=== PATIENT | male | born 1985 | race African-American/Black ===

== ENCOUNTER 2017-05-16 02:52 | Inpatient (IN) | payer OTHER, SELFPAY ==
[2017-05-16 03:20] LABS: Bilirubin Negative (Negative); Blood, Urine Large (Negative); Glucose, Urine (Dipstick) Negative (Negative); Ketone, Urine Negative (Negative); Nitrite Negative (Negative); Protein, Urine (Dipstick) 100 mg/dL (Neg-Trace); Urobilinogen 0.2 mg/dL (0.2-1.0)
[2017-05-16 03:22] LABS: Bacteria/HPF None Seen HPF (None Seen); Hyaline Casts/LPF 4-6 HYALINE CAST LPF (0-3 Hyaline); RBC/HPF 21-50 HPF (0-3); Squamous Epithelial 0-3 HPF (0-3); WBC/HPF 0-3 HPF (0-3)
[2017-05-16 03:23] LABS: Mean Platelet Volume 10.2 fL (7.4-10.4); Red Blood Cell (RBC) Count 6.51 mill/uL (4.70-6.10)
[2017-05-16 03:23] LABS: Oxyhemoglobin 89.4 % (94.0-97.0); Sodium 139 mmol/L (135-148)
[2017-05-16 03:27] LABS: PTT 28.1 SEC (22.9-36.1); Prothrombin Time 13.9 SEC (12.0-14.7)
[2017-05-16 03:30] LABS: Amphetamine Detected (NotDetected); Methadone Not Detected (NotDetected); Methamphetamine Detected (NotDetected)
[2017-05-16 03:31] LABS: Mechanical Tidal Volume 500 ml; Mode CMV; Modified Allen's Test POSITIVE; Vent YES
[2017-05-16 03:34] LABS: Band 2 % (5-11); Neutrophil 64 % (42-75); White Blood Cell (WBC) Count 17.9 thou/uL (4.8-10.8)
[2017-05-16 03:38] LABS: ALT (SGPT) 35 U/L (8-55); AST (SGOT) 58 U/L (5-34); Alkaline Phosphatase 98 U/L (40-150); Anion Gap 24 mmol/L (10-20); BUN (Urea Nitrogen) 15 mg/dL (8.9-20.6); Bilirubin, Total 0.3 mg/dL (0.2-1.2); Calc. Creatinine Clearance 0 mL/min (70-130); Calcium 9.6 mg/dL (7.8-10.44); Carbon Dioxide 14 mmol/L (22-29); Chloride 105 mmol/L (98-107); Estimated GFR-MDRD 72; Globulin 3.9 g/dL (2.4-3.5); Protein, Total 8.4 g/dL (6.0-8.3)
[2017-05-16 03:39] LABS: Acetaminophen Less than 6.0 mcg/mL (10.0-30.0); Salicylate Less than 8.0 mg/dL (15.0-30.0)
[2017-05-16] MEDS ORDERED: Fosphenytoin Sodium 1,500 MG in Sodium Chloride 0.9% 100 ML IVPB SCH (03:45)
[2017-05-16] MEDS ORDERED: Lorazepam 2 MG/ML VIAL ONE ×4 (03:59→05:22)
[2017-05-16] MEDS ORDERED: Propofol 1,000 MG/100 ML VIAL IV ONE (04:04)
[2017-05-16 04:27] LABS: Lactic Acid - Sepsis 13.5 mmol/L (0.5-2.2)
[2017-05-16] MEDS ORDERED: Fentanyl 20 MCG/ML 250 ML IVPB SCH (05:34)
[2017-05-16] MEDS ORDERED: Propofol 1,000 MG/100 ML VIAL IV PRN (05:34)
[2017-05-16] MEDS ORDERED: Lorazepam 2 MG/ML VIAL SLOW IVP PRN (05:34)
[2017-05-16] MEDS ORDERED: DISCONTINUE PREVIOUS NARCOTIC PAIN MEDICATIONS AND BENZODIAZEPINES FS SCH (05:34)
[2017-05-16] MEDS ORDERED: Morphine 2 MG/ML SYRINGE IVP PRN (05:35)
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
[2017-05-16] MEDS ORDERED: Ondansetron ODT 4 MG TAB PO PRN (05:59)
[2017-05-16] MEDS ORDERED: Dextrose 50% Abboject 50 ML SYRINGE SLOW IVP PRN (05:59)
[2017-05-16] MEDS ORDERED: Ondansetron HCl/PF 4 MG/2 ML Vial IVP PRN (05:59)
[2017-05-16] MEDS ORDERED: Sedation Protocol FS ONE (05:59)
[2017-05-16] MEDS ORDERED: HumaLOG 300 UNITS/3 ML VIAL SC PRN (05:59)
[2017-05-16] MEDS ORDERED: Dextrose 5% in Water 1,000 ML IV PRN (05:59)
[2017-05-16] MEDS ORDERED: hydrALAZINE 20 MG/ML VIAL SLOW IVP PRN (05:59)
[2017-05-16] MEDS: Sodium Chloride 0.9% 1,000 ML IV SCH ×2 (06:29→23:48)
[2017-05-16 08:05] LABS: Oxyhemoglobin 93.5 % (94.0-97.0); Sodium 139 mmol/L (135-148)
[2017-05-16 08:12] LABS: Mechanical Tidal Volume 500 ml; Mode SIMV.PSV; Modified Allen's Test POSITIVE; Pressure Support 10 cmH2O; Vent YES
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
[2017-05-16] MEDS ORDERED: Famotidine/PF 20 mg/2ml Vial SLOW IVP SCH (09:00)
[2017-05-16] MEDS ORDERED: Acetaminophen 1,000 MG in Premix Bag 1 BAG IVPB SCH (11:15)
[2017-05-16] MEDS ORDERED: ISOVUE-370 76%-LOCM 1 ML ONE (13:48)
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
[2017-05-16] MEDS ORDERED: Haloperidol Lactate 5 MG/ML VIAL IM PRN (20:13)
[2017-05-16] MEDS ORDERED: levETIRAcetam 500 MG TAB PO SCH (21:00)
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
[2017-05-17 05:21] LABS: Anion Gap 11 mmol/L (10-20); BUN (Urea Nitrogen) 6 mg/dL (8.9-20.6); Calc. Creatinine Clearance 132 mL/min (70-130); Calcium 9.6 mg/dL (7.8-10.44); Carbon Dioxide 24 mmol/L (22-29); Chloride 103 mmol/L (98-107); Estimated GFR-MDRD Greater than 90
[2017-05-17 05:57] LABS: Band 3 % (5-11); Hematocrit 51.2 % (42.0-52.0); Mean Platelet Volume 10.2 fL (7.4-10.4); Neutrophil 80 % (42-75); Red Blood Cell (RBC) Count 6.14 mill/uL (4.70-6.10); White Blood Cell (WBC) Count 14.9 thou/uL (4.8-10.8)
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
[2017-05-17] MEDS: Sodium Chloride 0.9% 1,000 ML IV SCH (10:50)
[2017-05-17] MEDS: D5 1/2 NS w/20 mEq KCL 1,000 ML IV SCH (17:59)
--- NOTE | 2017-05-17 18:20 | PRG ---
DATE OF SERVICE: 05/17/2017 Please see Adry Muller' note for today for detailed. Mr. Briceño is still sleepy, although when he awakes he is alert and oriented, follows commands. Swallow eval today was limited because he was sleepy. EEG is done. He has been followed by Neurolog y. ASSESSMENT: Question of seizure and drug abuse, intubated, now extubated, doing well, but still somn olent but not obtunded. PLAN : Await final neurology recommendations. Continue observation for now.
[2017-05-18] MEDS: D5 1/2 NS w/20 mEq KCL 1,000 ML IV SCH (07:19)
[2017-05-18 07:23] VITALS: TEMP 98.9
[2017-05-18 10:07] VITALS: BP 139/37
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
== END 2017-05-18 10:55 | disposition home or self-care (01) | DRG 100 ==
LOC: ERS 02:52 → EDBD 02:52 → EEVIPCON 04:16 → CCU 04:16
PROVIDERS: ADMIT Specialist; ATTEND Specialist
PROC: 5A1945Z Respiratory Ventilation, 24-96 Consecutive Hours (ICD-10-PCS; principal; 2017-05-16)
DX: G40.409 Other generalized epilepsy and epileptic syndromes, not intractable, without status epilepticus (principal); J96.00 Acute respiratory failure, unspecified whether with hypoxia or hypercapnia; S06.0X0A Concussion without loss of consciousness, initial encounter; V47.5XXA Car driver injured in collision with fixed or stationary object in traffic accident, initial encounter; F15.10 Other stimulant abuse, uncomplicated
CPT/HCPCS: 36415; 36416; 51702; 70450; 71010; 71260; 72125; 74177; 80048; 80053; 80306; 80307; 81003; 81015; 82150; 82805; 83605; 84146; 85025; 85610; 85730; 86850; 86900; 86901; 93005; 94002; 94003; 94640; 94760; 95816; 95819; 96361; 96365; 96367; 96374; 96375; G0390; G8987-GO-CJ; G8988-GO-CJ; G8989-GO-CJ; G8996-GN-CH; G8997-GN-CH; G8998-GN-CH; J0131; J1953; J2060; J2704; J7050; J7620; Q2009; S0028